=== PATIENT | female | born 1945 | race Two or more races ===

== ENCOUNTER 2024-03-09 17:53 | Inpatient (IN) | payer MEDICARE, OTHER ==
[~2024-03-09] VITALS: Ht 157.5 cm; Wt 64.9 kg
[2024-03-09] MEDS ORDERED: METOPROLOL (18:10)
[2024-03-09] MEDS ORDERED: LIPITOR (18:10)
[2024-03-09 19:15] VITALS: O2SAT 96
[2024-03-09] MEDS ORDERED: HYDROCODONE/APAP 10-325 MG TABLET PO ONE (19:15)
[2024-03-09 19:25] VITALS: O2SAT 98
[2024-03-09 19:30] LABS: BASOPHILS % (AUTO) 0.4 % (0.0-2.0); EOSINOPHILS % (AUTO) 0.4 % (0.0-7.0); NEUTROPHILS # (AUTO) 2.1 K/uL (1.8-8.9)
[2024-03-09] MEDS ORDERED: ALBUTEROL SULFATE 2.5 MG/3 ML NEBU ONE (19:34)
[2024-03-09] MEDS ORDERED: IPRATROPIUM BROMIDE 0.5 MG/2.5 ML NEBU ONE (19:34)
[2024-03-09 19:37] LABS: HEMATOCRIT 37.8 % (31.2-41.9); HEMOGLOBIN 12.6 g/dL (10.9-14.3); LYMPHOCYTES # (AUTO) 1.7 K/uL (0.8-4.8); LYMPHOCYTES % (AUTO) 36.2 % (20.5-51.5); MEAN CORPUSCULAR HEMOGLOBIN 31.5 uug (24.7-32.8); MEAN CORPUSCULAR HGB CONC 33 g/dL (32.3-35.6); MEAN CORPUSCULAR VOLUME 94.9 fL (75.5-95.3); MONOCYTES # (AUTO) 0.9 K/uL (0.1-1.30); MONOCYTES % (AUTO) 18.3 % (0.0-11.0); NEUTROPHILS % (AUTO) 44.7 % (38.5-71.5); PLATELET COUNT (AUTO) 173 K/uL (179-408); RED BLOOD CELL COUNT(AUTO) 3.98 MIL/uL (3.63-4.92); RED CELL DISTRIBUTION WIDTH 13.2 % (12.3-17.7); WHITE BLOOD COUNT (AUTO) 4.7 K/uL (3.8-11.8)
[2024-03-09 19:39] LABS: DIFFERENTIAL COMMENT 1
[2024-03-09 20:00] LABS: CALCIUM 8.1 mg/dL (8.5-10.1); CARBON DIOXIDE 25 mmol/L (21-32); CHLORIDE 107 mmol/L (98-107); CREATININE 0.8 mg/dL (0.6-1.3); GLUCOSE 122 mg/dL (74-106); POTASSIUM 3.9 mmol/L (3.5-5.1); SODIUM SERUM 143 mmol/L (136-145); UREA NITROGEN, BLOOD 12 mg/dL (7-18)
[2024-03-09 20:13] LABS: ALANINE AMINOTRANSFERASE 26 U/L (14-59); ALBUMIN 3.1 g/dL (3.4-5.0); ALKALINE PHOSPHATASE 56 U/L (50-136); ASPARTATE AMINOTRANSFERASE 25 U/L (15-37); BILIRUBIN,DIRECT 0.1 mg/dL (0.0-0.2); BILIRUBIN,TOTAL 0.5 mg/dL (0.2-1.0); NT-PRO BNP 75 pg/mL (0-125); TOTAL PROTEIN, SERUM 6.5 g/dL (6.4-8.2)
[2024-03-09] MEDS ORDERED: ALBU8.5H8 IH (20:21)
[2024-03-09] MEDS ORDERED: PRED20TA PO (20:21)
[2024-03-09] MEDS ORDERED: HYDR-3980 PO (20:21)
[2024-03-09] MEDS ORDERED: ONDA4TAB11 PO (20:21)
[2024-03-09] MEDS ORDERED: ONDANSETRON ODT 4 MG TAB.RAPDIS ONE (20:43)
[2024-03-09] MEDS ORDERED: predniSONE 10 MG TABLET ONE (20:43)
[2024-03-09] MEDS ORDERED: HYDROMORPHONE 1 MG/1 ML DISP.SYRIN ONE (20:44)
[2024-03-09] MEDS: predniSONE 10 MG TABLET PO ONE (20:47)
[2024-03-09] MEDS: ONDANSETRON ODT 4 MG TAB.RAPDIS SL ONE (20:48)
[2024-03-09] MEDS: HYDROMORPHONE 1 MG/1 ML DISP.SYRIN IM ONE (20:49)
[2024-03-09 20:59] LABS: LYMPHOCYTES % (MANUAL) 39 % (20-40); MONOCYTES % (MANUAL) 11 % (2-10); NEUTROPHILS % (MANUAL) 50 % (42-75)
[2024-03-09 21:00] LABS: ANISOCYTOSIS 1+; PLATELET ESTIMATE ADEQUATE
[2024-03-09] MEDS ORDERED: ALPRAZOLAM 0.25 MG TABLET PO ONE (21:30)
[2024-03-09] MEDS ORDERED: ALPRAZOLAM 0.5 MG TABLET ONE (21:32)
[2024-03-09] MEDS ORDERED: METOPROLOL TARTRATE 50 MG TABLET ONE (21:33)
[2024-03-09] MEDS: METOPROLOL TARTRATE 50 MG TABLET PO ONE (21:50)
[2024-03-09] MEDS: ALPRAZOLAM 0.25 MG TABLET PO ONE (21:51)
[2024-03-09] MEDS ORDERED: ASPIRIN 81 MG TAB.CHEW ONE (22:30)
[2024-03-09] MEDS: ASPIRIN 81 MG TAB.CHEW PO ONE (22:31)
[2024-03-09] MEDS: IPRATROPIUM BROMIDE 0.5 MG/2.5 ML NEBU NEB ONE (23:50)
[2024-03-09] MEDS: ALBUTEROL SULFATE 2.5 MG/3 ML NEBU NEB ONE (23:50)
[2024-03-10] MEDS ORDERED: ONDANSETRON 4 MG/2 ML VIAL IV PRN
[2024-03-10] MEDS ORDERED: MAGNESIUM HYDROXIDE 30 ML LIQUID UDC PO PRN
[2024-03-10] MEDS ORDERED: HYDROCODONE/APAP 5-325MG TABLET PO PRN
[2024-03-10] MEDS ORDERED: ACETAMINOPHEN 325 MG TABLET PO PRN
[2024-03-10 01:34] VITALS: BP 115/43; TEMP 97.9; O2SAT 99
[2024-03-10] MEDS: ENOXAPARIN SODIUM 40 MG/0.4 ML DISP.SYRIN SQ SCH (02:12)
[2024-03-10] MEDS: IV NS 1000 ML 1,000 ML IV PRN (02:13)
[2024-03-10 04:00] VITALS: BP 103/38; TEMP 97.7; O2SAT 99
[2024-03-10 07:38] LABS: BASOPHILS % (AUTO) 0.3 % (0.0-2.0); HEMATOCRIT 36.2 % (31.2-41.9); HEMOGLOBIN 12.1 g/dL (10.9-14.3); LYMPHOCYTES # (AUTO) 0.8 K/uL (0.8-4.8); LYMPHOCYTES % (AUTO) 20.2 % (20.5-51.5); MEAN CORPUSCULAR HEMOGLOBIN 31.9 uug (24.7-32.8); MEAN CORPUSCULAR HGB CONC 34 g/dL (32.3-35.6); MONOCYTES # (AUTO) 0.1 K/uL (0.1-1.30); MONOCYTES % (AUTO) 3.2 % (0.0-11.0); NEUTROPHILS # (AUTO) 3.2 K/uL (1.8-8.9); NEUTROPHILS % (AUTO) 76.3 % (38.5-71.5); PLATELET COUNT (AUTO) 172 K/uL (179-408); RED BLOOD CELL COUNT(AUTO) 3.81 MIL/uL (3.63-4.92); RED CELL DISTRIBUTION WIDTH 13.4 % (12.3-17.7); WHITE BLOOD COUNT (AUTO) 4.2 K/uL (3.8-11.8)
[2024-03-10 07:58] LABS: CALCIUM 8.1 mg/dL (8.5-10.1); CARBON DIOXIDE 24 mmol/L (21-32); CHLORIDE 105 mmol/L (98-107); CREATININE 1.1 mg/dL (0.6-1.3); PHOSPHOROUS 2.3 mg/dL (2.5-4.9); POTASSIUM 5.1 mmol/L (3.5-5.1); SODIUM SERUM 138 mmol/L (136-145); UREA NITROGEN, BLOOD 14 mg/dL (7-18)
[2024-03-10 08:00] VITALS: BP 110/52; TEMP 97.5; O2SAT 99
[2024-03-10 08:13] LABS: DIFFERENTIAL COMMENT 1
[2024-03-10 10:27] LABS: GLUCOSE 338 mg/dL (74-106)
[2024-03-10] MEDS ORDERED: BENZ-13 PO (11:19)
[2024-03-10] MEDS ORDERED: METH4TAB3 PO (11:19)
[2024-03-10 11:30] VITALS: BP 109/50; TEMP 98; O2SAT 99
== END 2024-03-10 13:20 | disposition home or self-care (01) | DRG 205 ==
LOC: ER 17:53 → TELE3 23:59
PROVIDERS: ADMIT Nurse Practitioner Acute Care; ATTEND Nurse Practitioner Acute Care
DX: M94.0 Chondrocostal junction syndrome [Tietze] (principal); I26.99 Other pulmonary embolism without acute cor pulmonale; E44.1 Mild protein-calorie malnutrition; B34.9 Viral infection, unspecified; Z53.29 Procedure and treatment not carried out because of patient's decision for other reasons; M79.10 Myalgia, unspecified site; E78.5 Hyperlipidemia, unspecified; J40 Bronchitis, not specified as acute or chronic; R00.0 Tachycardia, unspecified; E88.09 Other disorders of plasma-protein metabolism, not elsewhere classified; R51.9 Headache, unspecified
CPT/HCPCS: 36415; 70030-TC; 71045; 83735; 84100; 84484; 85025; 93005; G0378; J1171; J1650; J3590; J7040; J7512; Q0162